=== PATIENT | female | born 1990 | race Caucasian/White ===

== ENCOUNTER 2017-01-26 14:37 | Outpatient (CLI) | payer BC ==
[~2017-01-26] VITALS: Ht 170.2 cm; Wt 80.9 kg
[2017-01-26 15:06] VITALS: BP 121/69
[2017-01-26] MEDS ORDERED: PREN1TAB60 PO (15:10)
== END 2017-01-26 15:27 | disposition home or self-care (01) ==
LOC: LDOP 14:37
PROVIDERS: ATTEND Obstetrics & Gynecology Gynecology
DX: O46.93 Antepartum hemorrhage, unspecified, third trimester (principal); O36.8130 Decreased fetal movements, third trimester, not applicable or unspecified; Z3A.37 37 weeks gestation of pregnancy
CPT/HCPCS: 59025; 99211; G0463

== ENCOUNTER 2019-12-17 02:43 | Inpatient (IN) | payer OTHER ==
[~2019-12-17] VITALS: Ht 170.2 cm; Wt 84.0 kg
[~2019-12-17 02:43] MED LIST: IBUP-1222 PO; OXYC-302 PO; PREN1TAB60 PO
[2019-12-17] MEDS ORDERED: OXYTOCIN 30U/ 0.9% NaCL 500ML 500 ML IV ONE (02:52)
[2019-12-17] MEDS ORDERED: D5%-LACTATED RINGERS 1,000 ML IV SCH (02:52)
[2019-12-17] MEDS ORDERED: OXYTOCIN 30U/ 0.9% NaCL 500ML 500 ML IV PRN (02:52)
[2019-12-17] MEDS ORDERED: LACTATED RINGERS 1,000 ML IV SCH (02:52)
[2019-12-17] MEDS ORDERED: NEWBORN KIT ONE (02:56)
[2019-12-17 03:00] VITALS: BP 145/75
[2019-12-17] MEDS ORDERED: PENICILLIN GK 5,000,000 UNITS in DEXTROSE 5% 100 ML IVPB ONE (03:00)
[2019-12-17] MEDS ORDERED: FENTANYL PF 100 MCG/2ML IV PRN (03:00)
[2019-12-17] MEDS ORDERED: CALCIUM CARBONATE 500 MG TAB.CHEW PO PRN (03:00)
[2019-12-17] MEDS ORDERED: METOCLOPRAMIDE 5 MG/ML, 2ML IVPush PRN (03:00)
[2019-12-17] MEDS ORDERED: TERBUTALINE 1 MG/ML, 1ML IVPush PRN (03:00)
[2019-12-17] MEDS ORDERED: SODIUM CITRATE/CITRIC ACID 30 ML UDC PO PRN (03:00)
[2019-12-17] MEDS ORDERED: ONDANSETRON 2MG/ML, 2ML IVPush PRN (03:00)
[2019-12-17] MEDS ORDERED: FENTANYL PF 100 MCG/2ML IVPush PRN (03:00)
[2019-12-17] MEDS ORDERED: TERBUTALINE 1 MG/ML, 1ML SQ PRN (03:00)
[2019-12-17] MEDS ORDERED: SODIUM CHLORIDE FLUSH 10ML SYR IVF PRN (03:00)
[2019-12-17] MEDS ORDERED: FENTANYL PF 100 MCG/2ML ONE (03:03)
[2019-12-17] MEDS ORDERED: OXYTOCIN 30U/ 0.9% NaCL 500ML 500 ML ONE ×2 (03:10→03:50)
[2019-12-17 03:27] LABS: BASOPHILS # (AUTO) 0.02 x10^3/uL (0-0.1); BASOPHILS % (AUTO) 0 % (0-1); EOSINOPHILS # (AUTO) 0.08 x10^3/uL (0-0.4); EOSINOPHILS % (AUTO) 1 % (1-7); LYMPHOCYTES % (AUTO) 22 % (22-44); MD NO; MEAN CORPUSCULAR HEMOGLOBIN 30.4 pg (27.0-34.8); MEAN CORPUSCULAR HGB CONC 33.6 g/dL (32.4-35.8); MEAN CORPUSCULAR VOLUME 90.7 fL (80-100); MEAN PLATELET VOLUME 9.6 fL (7.4-10.4); MONOCYTES # (AUTO) 0.67 x10^3/uL (0.2-0.8); MONOCYTES % (AUTO) 7 % (2-9); NEUTROPHILS # (AUTO) 6.55 x10^3/uL (1.8-6.8); NEUTROPHILS % (AUTO) 70 % (42-75); PLATELET COUNT 164 x10^3/uL (130-400); RED BLOOD COUNT 4.37 x10^6/uL (3.82-5.3); RED CELL DISTRIBUTION WIDTH 12.9 % (9.6-15.2)
[2019-12-17] MEDS ORDERED: OXYcodone/APAP 5/325MG TABLET ONE (03:49)
[2019-12-17] MEDS ORDERED: IBUPROFEN 600 MG TABLET ONE (03:50)
[2019-12-17] MEDS: IBUPROFEN 600 MG TABLET PO PRN ×3 (04:00→20:25)
[2019-12-17] MEDS: OXYcodone/APAP 5/325MG TABLET PO PRN ×2 (04:00→20:54)
[2019-12-17] MEDS ORDERED: OXYTOCIN 30U/ 0.9% NaCL 500ML 500 ML IV SCH (05:15)
[2019-12-17] MEDS ORDERED: OXYcodone/APAP 5/325MG TABLET PO PRN (05:30)
[2019-12-17] MEDS ORDERED: SIMETHICONE 80 MG CHEW TAB PO PRN (05:30)
[2019-12-17 06:28] VITALS: BP 107/70
[2019-12-17 07:20] VITALS: BP 117/68
[2019-12-17] MEDS: PRENATAL VIT/IRON/FA 1 EACH TABLET PO SCH (09:00)
[2019-12-17 12:11] LABS: MEAN CORPUSCULAR HEMOGLOBIN 30.3 pg (27.0-34.8); MEAN CORPUSCULAR HGB CONC 33.2 g/dL (32.4-35.8); MEAN CORPUSCULAR VOLUME 91.4 fL (80-100); PLATELET COUNT 171 x10^3/uL (130-400); RED BLOOD COUNT 4.19 x10^6/uL (3.82-5.3); RED CELL DISTRIBUTION WIDTH 13.4 % (9.6-15.2)
[2019-12-17 12:30] VITALS: BP 123/76
[2019-12-17 12:32] LABS: BASOPHILS # (AUTO) 0.03 x10^3/uL (0-0.1); BASOPHILS % (AUTO) 0 % (0-1); EOSINOPHILS # (AUTO) 0.01 x10^3/uL (0-0.4); EOSINOPHILS % (AUTO) 0 % (1-7); LYMPHOCYTES # (AUTO) 1.49 x10^3/uL (1-3.4); LYMPHOCYTES % (AUTO) 13 % (22-44); MD SCAN; MONOCYTES # (AUTO) 0.54 x10^3/uL (0.2-0.8); MONOCYTES % (AUTO) 5 % (2-9); NEUTROPHILS # (AUTO) 9.39 x10^3/uL (1.8-6.8); NEUTROPHILS % (AUTO) 82 % (42-75)
[2019-12-17] MEDS: DOCUSATE 100 MG CAPSULE PO PRN (13:41)
[2019-12-17 16:40] VITALS: BP 113/73
[2019-12-17 20:00] VITALS: BP 127/72
[2019-12-18] VITALS: BP 117/76
[2019-12-18] MEDS: IBUPROFEN 600 MG TABLET PO PRN (05:17)
[2019-12-18 08:00] VITALS: BP 118/75
[2019-12-18] MEDS ORDERED: IBUP-1222 PO (08:37)
[2019-12-18] MEDS: OXYcodone/APAP 5/325MG TABLET PO PRN ×2 (08:52→10:22)
[2019-12-18] MEDS: DOCUSATE 100 MG CAPSULE PO PRN (08:52)
[2019-12-18] MEDS: PRENATAL VIT/IRON/FA 1 EACH TABLET PO SCH (09:00)
== END 2019-12-18 10:29 | disposition home or self-care (01) | DRG 807 ==
LOC: EDIP 02:43 → LDIP 02:48 → 2NW 05:36
PROVIDERS: ADMIT Obstetrics & Gynecology; ATTEND Obstetrics & Gynecology
PROC: 10E0XZZ Delivery of Products of Conception, External Approach (ICD-10-PCS; principal; 2019-12-17)
DX: O70.9 Perineal laceration during delivery, unspecified (principal); Z37.0 Single live birth; Z3A.39 39 weeks gestation of pregnancy
CPT/HCPCS: 36415; 85025; 86592; 86850; 86900; G0378; J2540; J3010; J2590; J7120

== ENCOUNTER 2020-08-09 11:19 | Emergency (ER) | payer OTHER ==
[~2020-08-09] VITALS: Ht 170.2 cm; Wt 74.2 kg
[~2020-08-09 11:19] MED LIST changes: -OXYC-302 PO; +OXYC1TAB14 PO
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
[2020-08-09] MEDS ORDERED: ONDANSETRON ODT 4 MG PO ONE (12:00)
[2020-08-09] MEDS ORDERED: ACETAMINOPHEN 500 MG TABLET PO ONE (12:00)
[2020-08-09] MEDS ORDERED: ACETAMINOPHEN 500 MG TABLET ONE (12:08)
[2020-08-09] MEDS ORDERED: ONDANSETRON ODT 4 MG ONE (12:08)
--- NOTE | 2020-08-09 12:34 | NUR ---
PT C/O OF HEADACHE. GAVE TYLENOL PER MD ORDER.
[2020-08-09 12:37] VITALS: BP 130/63
== END 2020-08-09 13:20 | disposition home or self-care (01) ==
LOC: ED 13:00
DX: S16.1XXA Strain of muscle, fascia and tendon at neck level, initial encounter (principal); S39.012A Strain of muscle, fascia and tendon of lower back, initial encounter; V49.09XA Driver injured in collision with other motor vehicles in nontraffic accident, initial encounter; Y93.89 Activity, other specified; Y92.488 Other paved roadways as the place of occurrence of the external cause; Y99.8 Other external cause status
CPT/HCPCS: 72050; 72110; 99284; Q0162

== ENCOUNTER 2020-10-20 18:26 | Emergency (ER) | payer OTHER ==
[~2020-10-20] VITALS: Ht 170.2 cm; Wt 71.4 kg
[2020-10-20] MEDS ORDERED: SODIUM CHLORIDE 0.9% 1,000ML IVBOLUS ONE (21:30)
[2020-10-20] MEDS ORDERED: ONDANSETRON 2MG/ML, 2ML IVPush ONE (21:30)
--- NOTE | 2020-10-20 21:40 | NUR ---
PT BACK TO THIS RN'S ROOM AT THIS TIME. PT CAME INTO ED DUE TO RIGH TLOWER ABDOMINAL PAIN, STARTED LIHGTLY ABOUT 4 DAYS AGO BUT THEN BEGAN WORSENING AND PT DEVELOPED A FEVER. PT TOOK 1000MG TYLENOL PRIOR TO ARRVIAL TO THE ED, PT PLACED ON SPO2/BP/ECG MONITORING. Patient is resting comfortably in bed. Bed in lowest, rails engaged, call light on lap. TM.
[2020-10-20] MEDS ORDERED: ONDANSETRON 2MG/ML, 2ML ONE (21:44)
[2020-10-20] MEDS ORDERED: MORPHINE SULFATE 4 MG/ML, 1ML ONE (21:44)
[2020-10-20] MEDS: MORPHINE SULFATE 4 MG/ML, 1ML IVPush PRN (21:47)
[2020-10-20 22:03] LABS: BASOPHILS % (AUTO) 0 % (0-1); EOSINOPHILS % (AUTO) 0 % (1-7); LYMPHOCYTES % (AUTO) 12 % (22-44); MEAN CORPUSCULAR HEMOGLOBIN 31.2 pg (27.0-34.8); MEAN PLATELET VOLUME 9.2 fL (7.4-10.4); MONOCYTES % (AUTO) 7 % (2-9); NEUTROPHILS % (AUTO) 81 % (42-75); PLATELET COUNT 180 x10^3/uL (130-400); RED BLOOD COUNT 4.44 x10^6/uL (3.82-5.3); RED CELL DISTRIBUTION WIDTH 12.2 % (9.6-15.2)
[2020-10-20 22:10] LABS: MICROSCOPIC INDICATED
[2020-10-20 22:13] LABS: ALANINE AMINOTRANSFERASE 18 U/L (12-78); ALBUMIN 3.8 g/dL (3.4-5.0); ANION GAP 6 mmol/L (5-15); CALCIUM 9.1 mg/dL (8.5-10.1); CHLORIDE 105 mmol/L (98-107)
[2020-10-20 22:18] LABS: ALKALINE PHOSPHATASE 70 U/L (45-117); BILIRUBIN,TOTAL 0.5 mg/dL (0.2-1.0); CREATININE 0.91 mg/dL (0.55-1.02); TOTAL PROTEIN 7.6 g/dL (6.4-8.2)
[2020-10-20] MEDS ORDERED: OMNIPAQUE 350 MG/ML, 100ML BOTTLE ONE (22:20)
[2020-10-20] MEDS ORDERED: ACETAMINOPHEN 500 MG TABLET PO ONE (22:30)
--- NOTE | 2020-10-20 22:59 | NUR ---
Patient is resting comfortably in bed. Bed in lowest, rails engaged, call light on lap. Vital Signs within normal limits. WCTM.
[2020-10-21] MEDS ORDERED: CIPROFLOXACIN 500 MG TABLET PO ONE
[2020-10-21] MEDS ORDERED: ONDANSETRON 2MG/ML, 2ML IVPush ONE (00:30)
[2020-10-21] MEDS ORDERED: ONDANSETRON 2MG/ML, 2ML ONE (01:12)
[2020-10-21] MEDS ORDERED: MORPHINE SULFATE 4 MG/ML, 1ML ONE (01:12)
[2020-10-21] MEDS: MORPHINE SULFATE 4 MG/ML, 1ML IVPush PRN (01:15)
[2020-10-21] MEDS ORDERED: ACETAMINOPHEN 500 MG TABLET ONE (01:18)
--- NOTE | 2020-10-21 01:27 | NUR ---
Patient given discharge instructions and they have confirmed that they understand the instructions. Patient ambulatory with steady gait. NAD, all questions answered appropriately, denies additional needs at this time. No personal belongings left in room after discharge.
[2020-10-21 01:31] VITALS: BP 112/71
== END 2020-10-21 01:33 | disposition home or self-care (01) ==
LOC: ED 22:09
DX: K52.9 Noninfective gastroenteritis and colitis, unspecified (principal); E86.9 Volume depletion, unspecified; R00.0 Tachycardia, unspecified
CPT/HCPCS: 36415; 74177; 80053; 81001; 83690; 84703; 85025; 87086; 96361; 96374; 96375; 96376; 99285; J2270; J2405; J7030; Q9967